=== PATIENT | female | born 1960 | race African-American/Black ===

== ENCOUNTER 2021-03-05 19:53 | Emergency (ER) | payer MEDICAID ==
[~2021-03-05] VITALS: Ht 154.9 cm; Wt 83.1 kg
[2021-03-05] MEDS ORDERED: AMLODIPINE 10MG TABLET PO ONE (20:30)
[2021-03-05 21:15] LABS: BASOPHILS % 0.5 % (0.0-2.0); EOSINOPHILS % 1.5 % (0.0-5.0); HEMATOCRIT. 38.1 % (36.0-48.0); HEMOGLOBIN. 12.4 g/dL (12.0-16.0); LYMPHOCYTES % 38.6 % (20.0-50.0); MEAN CORPUSCULAR HEMOGLOBIN 29.5 pg (28.0-32.0); MEAN CORPUSCULAR VOLUME 90.5 fL (81.0-99.0); MEAN PLATELET VOLUME 9.3 fl (7.4-10.4); MONOCYTES % 6.9 % (2.0-8.0); NEUTROPHILS % 52.5 % (40.0-76.0); PLATELET 212 x1000/uL (130-400); RED BLOOD CELL COUNT 4.21 mill/uL (4.2-5.4); RED CELL DISTRIBUTION WIDTH 13.9 % (11.6-14.6)
[2021-03-05 21:22] LABS: CHLORIDE 109 mEq/L (98-107)
[2021-03-05 21:24] LABS: INR 1.1; PROTHROMBIN TIME 11.6 sec (9.6-11.0)
[2021-03-05] MEDS ORDERED: HYDRALAZINE HCL 25MG TABLET PO SCH (22:00)
[2021-03-05 22:32] LABS: CLARITY URINE CLOUDY (CLEAR); COLOR URINE YELLOW (YELLOW); KETONES URINE NEGATIVE (NEGATIVE); LEUKOCYTE ESTERASE URINE TRACE (NEGATIVE); NITRITE URINE NEGATIVE (NEGATIVE); OCCULT BLOOD URINE NEGATIVE (NEGATIVE); PROTEIN URINE NEGATIVE (NEGATIVE); SPECIFIC GRAVITY URINE 1.009 (1.005-1.030); UROBILINOGEN URINE 0.2 E.U./dL (0.2-1.0)
[2021-03-05] MEDS ORDERED: AMLO5TAB88 MT (23:27)
[2021-03-05 23:44] VITALS: BP 223/119
== END 2021-03-06 00:43 | disposition home or self-care (01) ==
LOC: ER 19:53
DX: I10 Essential (primary) hypertension (principal)
CPT/HCPCS: 36415; 80053; 81003; 85025; 93005; 99284